=== PATIENT | female | born 1935 | race Caucasian/White ===

== ENCOUNTER → 2019-04-02 | Outpatient (REF) | payer MEDICARE ==
[2019-04-02 13:50] LABS: BASO % 0.6 % (0.0-1.0); EOS # 0.2 10^3/uL (0.0-0.5); EOS % 3.1 % (0.0-3.0); HEMATOCRIT 40.2 % (36.0-47.0); HEMOGLOBIN 13.3 g/dl (12.0-15.5); LYMPH # 2.2 10^3/uL (1.5-5.0); MEAN CORPUSCULAR HEMOGLOBIN 33.2 pg (27.0-33.0); MEAN CORPUSCULAR HGB CONC 33.1 g/dl (32.0-36.5); MEAN CORPUSCULAR VOLUME 100.2 fl (80.0-96.0); MONO # 0.6 10^3/uL (0.0-0.8); MONO % 8.3 % (0.0-5.0); NEUTROPHILS % 56.7 % (36.0-66.0); PLATELET COUNT, AUTOMATED 305 10^3/uL (150-450); RED BLOOD COUNT 4.01 10^6/uL (4.00-5.40)
[2019-04-02 14:04] LABS: ALBUMIN 3.9 GM/DL (3.2-5.2); ALT/SGPT 21 U/L (12-78); BILIRUBIN,TOTAL 0.3 MG/DL (0.2-1.0); BLOOD UREA NITROGEN 28 MG/DL (7-18); CALCIUM LEVEL 9.2 MG/DL (8.8-10.2); CARBON DIOXIDE LEVEL 25 MEQ/L (21-32); CHLORIDE LEVEL 109 MEQ/L (98-107); FOLATE > 24.0 NG/ML; GLOMERULAR FILTRATION RATE > 60.0 (>32); GLUCOSE, FASTING 96 MG/DL (70-100); POTASSIUM SERUM 4.3 MEQ/L (3.5-5.1); RHEUMATOID FACTOR QUANT < 10.0 IU/ML (<15.0); SODIUM LEVEL 143 MEQ/L (136-145); TOTAL PROTEIN 7.1 GM/DL (6.4-8.2); VITAMIN B12 LEVEL 479 PG/ML
[2019-04-02 14:11] LABS: HEMOGLOBIN A1c 5.4 %
[2019-04-02 14:29] LABS: ERYTHROCYTE SEDIMENTATION RATE 20 mm/hr (0-30)
[2019-04-08 11:01] LABS: DRVV SCREEN 40.2 SEC
[2019-04-09 00:06] LABS: ANTI DS-DNA AB <1:10 titer (.); ANTINUCLEAR ANTIBODIES DIRECT Negative (Negative); SJOGREN'S ANTI SS-A <0.2 AI (0.0-0.9); SJOGREN'S ANTI SS-B <0.2 AI (0.0-0.9); VITAMIN B1 LEVEL WHOLE BLOOD 153.8 nmol/L (66.5-200.0); VITAMIN B6,PYRIDOXAL PHOSPHATE 25.6 ug/L (2.0-32.8); VITAMIN E(ALPHA TOCOPHEROL) 19.5 mg/L (9.0-29.0); VITAMIN E(GAMMA TOCOPHEROL) 2.1 mg/L (0.5-4.9)
== END ==
LOC: M LABNEURO 09:48
PROVIDERS: ATTEND Psychiatry & Neurology Neurology
DX: R41.89 Other symptoms and signs involving cognitive functions and awareness (principal); E07.9 Disorder of thyroid, unspecified

== ENCOUNTER 2019-05-07 17:53 | Inpatient (IN) | payer MEDICARE ==
[~2019-05-07] VITALS: Ht 167.6 cm; Wt 64.8 kg
[2019-05-07] MEDS ORDERED: SERT-138 PO (18:15)
[2019-05-07] MEDS ORDERED: ATOR1TAB19 PO (18:15)
[2019-05-07] MEDS ORDERED: ASPI81CH44 PO (18:15)
[2019-05-07] MEDS ORDERED: DONE10TA90 PO (18:15)
[2019-05-07] MEDS ORDERED: MULTCAP PO (20:08)
[2019-05-07] MEDS ORDERED: METO1TAB7 PO (20:08)
[2019-05-07] MEDS ORDERED: GINK60TA2 PO (20:08)
--- NOTE | 2019-05-07 20:29 | REPVR ---
PROCEDURE INFORMATION: Exam: CT Head Without Contrast Exam date and time: 05/07/2019 7:40 PM Clinical history: 83 years old, female; Injury or trauma; Fall; Initial encounter; Blunt trauma (contusions or hematomas) TECHNIQUE: Imaging protocol: Computed tomography of the head without contrast. Radiation optimization: All CT scans at this facility use at least one of these dose optimization techniques: automated exposure control; mA and/or kV adjustment per patient size (includes targeted exams where dose is matched to clinical indication); or iterative reconstruction. COMPARISON: No relevant prior studies available. FINDINGS: Brain: Patchy areas of hypoattenuation in the periventricular and subcortical white matter, consistent with chronic small vessel ischemic disease. No CT evidence of acute intracranial hemorrhage or acute territorial infarction. No significant mass effect or midline shift. Basal cisterns patent. Ventricles: Prominence of the cortical sulci, cisterns and ventricular system, consistent with cerebral and cerebellar volume loss. Bones/joints: No acute osseous abnormality. Sinuses: Minimal ethmoid mucosal thickening. Mastoid air cells: Grossly unremarkable. Soft tissues: Grossly unremarkable. Vasculature: Calcific atherosclerotic disease in the cavernous internal carotid arteries. IMPRESSION: 1. No CT evidence of acute intracranial pathology. 2. Additional findings, as above. Electronically signed by: Lionel Mcnamara On 05/07/2019 20:29:02 PM
[2019-05-07] MEDS ORDERED: DONEPEZIL 5 MG TAB PO ONE (20:30)
[2019-05-07] MEDS ORDERED: SERTRALINE 100 MG TAB PO ONE (20:30)
[2019-05-07] MEDS ORDERED: METOPROLOL SUCC (TopROL XL) 50MG **XL** TAB PO ONE (20:30)
--- NOTE | 2019-05-07 20:33 | REPVR ---
PROCEDURE INFORMATION: Exam: CT Cervical Spine Without Contrast Exam date and time: 05/07/2019 7:40 PM Clinical history: 83 years old, female; Injury or trauma; Fall; Initial encounter; Blunt trauma TECHNIQUE: Imaging protocol: Computed tomography images of the cervical spine without contrast. Axial, coronal and sagittal reformatted images were created and reviewed. Radiation optimization: All CT scans at this facility use at least one of these dose optimization techniques: automated exposure control; mA and/or kV adjustment per patient size (includes targeted exams where dose is matched to clinical indication); or iterative reconstruction. COMPARISON: No relevant prior studies available. FINDINGS: Vertebrae: Osteopenia. Mild reversal of the normal cervical lordosis. Mild anterolisthesis of C3 on C4. Alignment otherwise anatomic. No CT evidence of acute fracture, dislocation or subluxation. Vertebral body heights maintained. Discs/Spinal canal/Neural foramina: Mild multilevel degenerative changes, characterized by disc space narrowing, osteophytosis and uncovertebral and facet joint hypertrophy. Mild multilevel spinal canal and neural foraminal narrowing. Soft tissues: Grossly unremarkable. Lungs: Subsegmental consolidation at the left apex, likely due to atelectasis and/or scarring. IMPRESSION: 1. No CT evidence of acute cervical spine traumatic injury. 2. Additional findings, as above. Electronically signed by: Lionel Mcnamara On 05/07/2019 20:31:22 PM
[2019-05-07 20:54] LABS: HEMATOCRIT 37.7 % (36.0-47.0); HEMOGLOBIN 12.5 g/dl (12.0-15.5); MEAN CORPUSCULAR VOLUME 95.7 fl (80.0-96.0); RED BLOOD COUNT 3.94 10^6/uL (4.00-5.40); WHITE BLOOD COUNT 8.7 10^3/uL (4.0-10.0)
[2019-05-07 20:55] LABS: BASO % 0.2 % (0.0-1.0); EOS # 0.1 10^3/uL (0.0-0.5); EOS % 0.9 % (0.0-3.0); LYMPH # 2.6 10^3/uL (1.5-5.0); LYMPH % 29.4 % (24.0-44.0); MEAN CORPUSCULAR HEMOGLOBIN 31.7 pg (27.0-33.0); MEAN CORPUSCULAR HGB CONC 33.2 g/dl (32.0-36.5); MONO # 0.8 10^3/uL (0.0-0.8); MONO % 9.5 % (0.0-5.0); NEUTROPHILS # 5.2 10^3/uL (1.5-8.5); NEUTROPHILS % 59.7 % (36.0-66.0); PLATELET COUNT, AUTOMATED 273 10^3/uL (150-450)
[2019-05-07 21:24] LABS: AMPHETAMINES LEVEL URINE NEGATIVE (NEGATIVE); BARBITURATES URINE NEGATIVE (NEGATIVE); BENZODIAZEPINES URINE NEGATIVE (NEGATIVE); CANNABINOIDS URINE NEGATIVE (NEGATIVE); COCAINE METABOLITE URINE NEGATIVE (NEGATIVE); METHADONE URINE NEGATIVE (NEGATIVE); OPIATES URINE NEGATIVE (NEGATIVE); PHENCYCLIDINE URINE NEGATIVE (NEGATIVE)
[2019-05-07 21:28] LABS: ALBUMIN 3.7 GM/DL (3.2-5.2); ALT/SGPT 20 U/L (12-78); BILIRUBIN,DIRECT 0.1 MG/DL (0.0-0.2); BILIRUBIN,TOTAL 0.5 MG/DL (0.2-1.0); BLOOD UREA NITROGEN 18 MG/DL (7-18); CARBON DIOXIDE LEVEL 26 MEQ/L (21-32); CHLORIDE LEVEL 108 MEQ/L (98-107); CK-MB VALUE MASS < 1.0 NG/ML (<3.6); CPK CREATINE PHOSPHOKINASE 195 U/L (26-192); CREATININE FOR GFR 0.72 MG/DL (0.55-1.30); ETHYL ALCOHOL (ETHANOL) < 0.003 % (0.000-0.010); GLOMERULAR FILTRATION RATE > 60.0 (>32); GLUCOSE, FASTING 93 MG/DL (70-100); MB/CK RELATIVE INDEX 0.51 (< OR =4); POTASSIUM SERUM 3.6 MEQ/L (3.5-5.1); SODIUM LEVEL 141 MEQ/L (136-145); TOTAL PROTEIN 6.8 GM/DL (6.4-8.2); TROPONIN I < 0.02 NG/ML (< 0.10)
[2019-05-07] MEDS ORDERED: MAALOX 30 ML SUSP *UDC PO PRN (21:45)
[2019-05-07] MEDS ORDERED: ATORVASTATIN 10 MG TAB PO ONE (21:45)
[2019-05-07] MEDS ORDERED: ATORVASTATIN 20 MG TAB PO ONE (21:45)
--- NOTE | 2019-05-07 22:12 | HPEPDOC ---
General Date of Admission May 07, 2019 at 17:54 Date of Service: May 07, 2019 Chief Complaint The patient is a 83-year-old female admitted with a reason for visit of Altered Mental Status, Fall. Source: Family, RN/MD Exam Limitations: Other (advanced dementia) Timing/Duration: Unsure Severity: Other (, not applicable) Associated Symptoms: Other History of Present Illness This is 83 years old white female with past medical history of dementia, hyperlipidemia, hypertension who lives alone and independent was transferred from [facility] for altered mental status.. Patient has advanced dementia, unable to obtained history from her history was obtained from her 2 sons at the bedside. According to both sons. She was walking towards bank and all the way. She fell on the sidewalk not sure how when the she had any LOC, etc.? She reached the [employer] and and somebody at the bank and recognize her and brought her back home. Patient does not remember anything. Cannot offer any history at the present time Home Medications Scheduled Aspirin (Aspirin) 81 Mg Tab.chew, 81 MG PO QPM, (Reported) Atorvastatin Calcium (Atorvastatin Calcium) 10 Mg Tablet, 10 MG PO QPM, (Reported) Donepezil HCl (Donepezil HCl) 10 Mg Tablet, 10 MG PO QPM, (Reported) Ginkgo Biloba [place] Extract (Ginkgo) 60 Mg Tablet, 60 MG PO QPM, (Reported) Metoprolol Succinate (Metoprolol Succinate) 50 Mg Tab.er.24h, 50 MG PO QPM, (Rep orted) Multivitamin (Multivitamins) 1 Each Capsule, 1 CAP PO QPM, (Reported) Sertraline HCl (Sertraline HCl) 100 Mg Tablet, 100 MG PO QPM, (Reported) Allergies Coded Allergies: No Known Allergies (Unverified , 05/07/19) Past Medical History Medical History Dementia, hyperlipidemia, possible depression and hypertension Surgical History None available Social History * Smoker: Denies Alcohol: Denies Drugs: denies A-FIB/CHADSVASC A-FIB History Current/History of A-Fib/PAF?: No Review of Systems Constitutional: Reports: Other (. Unable to obtained review of systems secondary to patient's mental status) Physical Examination General Exam: Positive: Alert, Other (oriented 0) Eye Exam: Positive: PERRLA, Conjunctiva & lids normal ENT Exam: Positive: Atraumatic, Mucous membr. moist/pink Neck Exam: Positive: Supple Chest Exam: Positive: Clear to auscultation, Normal air movement Heart Exam: Positive: Rate Normal, Normal S1 Abdomen Exam: Positive: Normal bowel sounds, Soft Extremity Exam: Positive: Normal pulses Skin Exam: Positive: Nl turgor and temperature Neuro Exam: Positive: Strength at 5/5 X4 ext, Sensation Intact, Cranial Nerves 3-12 NL Psych Exam: Positive: Other (, oriented 0) Vital Signs Vital Signs Date Time Temp Pulse Resp B/P (MAP) Pulse Ox O2 Delivery O2 Flow Rate FiO2 05/07/19 21:26 95 18 96 Room Air 05/07/19 20:45 164/84 (110) 05/07/19 18:06 99.0 Laboratory Data Labs 24H Laboratory Tests 2 05/07/19 19:30: Immature Granulocyte % (Auto) 0.3, Neutrophils (%) (Auto) 59.7, Lymphocytes (%) (Auto) 29.4, Monocytes (%) (Auto) 9.5H, Eosinophils (%) (Auto) 0.9, Basophils (%) (Auto) 0.2, Neutrophils # (Auto) 5.2, Lymphocytes # (Auto) 2.6, Monocytes # (Auto) 0.8, Eosinophils # (Auto) 0.1, Basophils # (Auto) 0.0, Nucleated Red Blood Cells % (auto) 0.0, Anion Gap 7L, Glomerular Filtration Rate > 60.0, Calcium Level 9.0, Total Bilirubin 0.5, Direct Bilirubin 0.1, Aspartate Amino Transf (AST/SGOT) 13, Alanine Aminotransferase (ALT/SGPT) 20, Alkaline Phosphatase 62, Ammonia 11, Total Creatine Kinase 195H, Creatine Kinase MB < 1.0, Creatine Kinase MB Relative Index 0.51, Troponin I < 0.02, Total Protein 6.8, Albumin 3.7, Albumin/Globulin Ratio 1.19, Thyroid Stimulating Hormone (TSH) 2.790, Ethyl Alcohol Level < 0.003 05/07/19 20:28: Urine Color YELLOW, Urine Appearance CLEAR, Urine pH 6.0, Urine Specific [place] 1.010, Urine Protein NEGATIVE, Urine Glucose (UA) NEGATIVE, Urine Ketones NEGATIVE, Urine Blood 1+H, Urine Nitrite NEGATIVE, Urine Bilirubin NEGATIVE, Urine Urobilinogen 0.2, Urine Leukocyte Esterase NEGATIVE, Urine WBC (Auto) 3, Urine RBC (Auto) 1, Urine Hyaline Casts (Auto) 0, Urine Bacteria (Auto) NEGATIVE, Urine Squamous Epithelial Cells 0, Urine Sperm (Auto) , Urine Opiates Screen NEGATIVE, Urine Methadone Screen NEGATIVE, Urine Barbiturates Screen NEGATIVE, Urine Phencyclidine Screen NEGATIVE, Urine Amphetamines Screen NEG ATIVE, Urine Benzodiazepines Screen NEGATIVE, Urine Cocaine Metabolite Screen NEGATIVE, Urine Cannabinoids Screen NEGATIVE CBC/BMP Laboratory Tests 05/07/19 19:30 Problems (1) Altered mental status Status: Acute Problem Text: 83 years old white female with advanced dementia, hypertension, hyperlipidemia, had a fall on away from her home to thank patient does not recall the events most likely was a mechanical fall, but cannot rule out any other etiology, especially neurological etiology. . She had a CT of the head done which is essentially negative. All the lab work is within normal limits Will order further neurological workup such as MRI of the brain, echocardiogram and carotid Dopplers Admit to PCU with telemetry monitoring to rule out any cause of her advanced causing her to fall MRI of the brain to rule out any ischemia or thrombosis Carotid Dopplers Echocardiogram Physical therapy evaluation in a.m. Out of bed with assistance fall precaution 2 g sodium diet Social work eval for possible placement (2) Advanced dementia Status: Chronic Problem Text: Continue home meds (3) HTN (hypertension) Status: Chronic Problem Text: Continue home meds (4) Hyperlipidemia Status: Chronic Problem Text: Continue home meds Plan / VTE VTE Prophylaxis Ordered?: Yes BONNIE EL MD May 07, 2019 22:12
[2019-05-07 23:30] VITALS: BP 160/71
--- NOTE | 2019-05-07 23:58 | REP ---
Clinical: Trauma. Technique: AP, lateral, bilateral oblique views of the left knee. Findings: No acute fracture or dislocation. No obvious effusion. Mild arthritic changes include subtle cortical irregularity and very early spurring along the medial tibiofemoral compartment as well as small amounts of chondrocalcinosis. Lateral view demonstrates anterior swelling. Impression: Mild arthritic degenerative changes. No obvious acute fracture or dislocation. Electronically Signed by Lenard Le MD 05/07/2019 11:48 P
--- NOTE | 2019-05-08 00:02 | REP ---
Clinical: Trauma. Technique: AP, lateral, bilateral oblique views of the right wrist. Findings: Age-related osteopenia and diffuse arthritic degenerative changes are appreciated primarily involving the lateral aspect of the wrist. Findings include cortical irregularity, subtle spurring, subchondral sclerosis/heterogeneity, and small amounts of chondrocalcinosis as well as minimal joint space narrowing. A subtle nondisplaced fracture of the scaphoid bone cannot be excluded. Impression: 1. Osteopenia and moderate arthritic degenerative changes. 2. Subtle nondisplaced fracture of the scaphoid bone cannot be excluded. Electronically Signed by Lenard Le MD 05/07/2019 11:53 P
--- NOTE | 2019-05-08 00:03 | REP ---
Clinical: Trauma. Technique: AP, lateral, bilateral oblique views of the left hand. Findings: Osteopenia and moderate arthritic degenerative changes are appreciated which limit evaluation for subtle injury involving the wrist. No definite acute fracture or dislocation identified. Impression: Osteopenia and arthritic degenerative changes limit evaluation for subtle injury. If the patient remains symptomatic consider reevaluation in 3-5 days. Electronically Signed by Lenard Le MD 05/07/2019 11:55 P
--- NOTE | 2019-05-08 00:05 | REP ---
Clinical: Altered mental status . Comparison: None . Technique: PA and lateral. Findings: The mediastinum and cardiac silhouette are normal. The lung robin demonstrate diffuse chronic interstitial changes without acute consolidation, effusion, or pneumothorax. The skeletal structures are intact and normal. Impression: 1. No acute cardiopulmonary process. Electronically Signed by Lenard Le MD 05/07/2019 11:57 P
[2019-05-08] MEDS ORDERED: SLF 3 ML SYR IV PRN (01:00)
[2019-05-08 04:00] VITALS: BP 136/72
[2019-05-08] MEDS: SLF 3 ML SYR IV SCH ×3 (05:08→21:26)
[2019-05-08] MEDS: ACETAMINOPHEN TAB 650MG DOSE (2X325MG) PO PRN ×3 (05:08→21:26)
[2019-05-08 05:59] LABS: HEMATOCRIT 37.5 % (36.0-47.0); HEMOGLOBIN 12.6 g/dl (12.0-15.5); MEAN CORPUSCULAR HEMOGLOBIN 32.6 pg (27.0-33.0); MEAN CORPUSCULAR HGB CONC 33.6 g/dl (32.0-36.5); MEAN CORPUSCULAR VOLUME 96.9 fl (80.0-96.0); PLATELET COUNT, AUTOMATED 251 10^3/uL (150-450); RED BLOOD COUNT 3.87 10^6/uL (4.00-5.40); WHITE BLOOD COUNT 9.7 10^3/uL (4.0-10.0)
[2019-05-08 06:34] LABS: ALBUMIN 3.4 GM/DL (3.2-5.2); ALT/SGPT 20 U/L (12-78); BILIRUBIN,TOTAL 0.4 MG/DL (0.2-1.0); BLOOD UREA NITROGEN 18 MG/DL (7-18); CARBON DIOXIDE LEVEL 27 MEQ/L (21-32); CHLORIDE LEVEL 110 MEQ/L (98-107); CREATININE FOR GFR 0.74 MG/DL (0.55-1.30); GLOMERULAR FILTRATION RATE > 60.0 (>32); GLUCOSE, FASTING 97 MG/DL (70-100); POTASSIUM SERUM 3.5 MEQ/L (3.5-5.1); SODIUM LEVEL 143 MEQ/L (136-145)
[2019-05-08 08:00] VITALS: BP 122/58
[2019-05-08] MEDS: DOCUSATE SODIUM 100 MG CAP PO SCH ×2 (09:00→21:25)
[2019-05-08] MEDS: ENOXAPARIN 30 MG/0.3 ML SYR (J1650) SC SCH (10:52)
[2019-05-08 12:00] VITALS: BP 124/62
--- NOTE | 2019-05-08 15:31 | ECGEPIP ---
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
[2019-05-08 17:23] VITALS: BP 119/78
--- NOTE | 2019-05-08 18:51 | REPVR ---
PROCEDURE INFORMATION: Exam: CT Right Upper Extremity Without Contrast, Wrist Exam date and time: 05/08/2019 6:17 PM Clinical history: 83 years old, female; Injury or trauma; Fall; Initial encounter; Blunt trauma (contusions or hematomas; Wrist; Right; Additional info: Right wrist ? scaphoid fracture S/P fall TECHNIQUE: Imaging protocol: CT of the Right upper extremity without contrast was performed. Exam focused on the wrist. Radiation optimization: All CT scans at this facility use at least one of these dose optimization techniques: automated exposure control; mA and/or kV adjustment per patient size (includes targeted exams where dose is matched to clinical indication); or iterative reconstruction. COMPARISON: CR Wrist, complete RIGHT 05/07/2019 7:54 PM FINDINGS: Bones/joints: Chondrocalcinosis of the distal radioulnar, radiocarpal, midcarpal and triscaphe joints, as well as triangular fibrocartilage and lunotriquetral ligament. Cystlike lucencies within multiple carpal bones. Degenerative arthrosis of the radiocarpal, triscaphe and basal joints. No fracture. Soft tissues: Mild swelling of the wrist soft tissues. IMPRESSION: 1. No fracture. 2. 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 Electronically signed by: Jose Leonard On 05/08/2019 18:51:24 PM
[2019-05-08] MEDS ORDERED: NS 1,000 ML IV SCH (19:30)
--- NOTE | 2019-05-08 19:33 | IPN ---
DATE: 05/08/2019 The patient is not cooperative this morning, would not answer any questions. Per nursing, she was able to squeeze her hand earlier this morning, able to state that she has three sons. However, at the bedside, she keeps her eyes closed, opens them occasionally, does not answer any questions, goes back to sleep. She has been afebrile overnight. Per nursing, she has had altered mental status throughout the evening, sometimes cooperative and other times not. MRI of the brain was done at [facility], I do not have the results of that at this time. CT of the head here at [facility] from 05/07/2019 was negative. Unable to complete further review of systems. PHYSICAL EXAMINATION: VITAL SIGNS: Temperature 99.2, pulse 75, respiratory rate 16, blood pressure 119/70, 93% on room air. GENERAL: The patient is demented. She does not answer. She is not cooperative with the examination. Per nursing, the patient does not have any conversational dyspnea and speaks to them in full sentences. For me however she only says yes to her name, does not state her full name, date of , where she is or what the date is. She continues to sleep, but is arousable. Does not appear to be lethargic but just uncooperative. No jugular venous distention (JVD). No thyromegaly.chapped lips. Poor dentition and halitosis. LUNGS: Diminished but clear to auscultation. No wheezing, rales or rhonchi. HEART: S1, S2. Sinus rhythm. ABDOMEN: Soft, nontender, nondistended. Positive bowel sounds. EXTREMITIES: No cyanosis, clubbing, or pitting edema. NEUROLOGIC: Examination could not be completed as the patient is demented and not cooperative at this time. LABORATORY DATA: Complete blood count (CBC) and metabolic panel have been reviewed. IMAGING STUDIES: CT of the right wrist shows CPPD arthropathy with degenerative arthrosis with chondrocalcinosis with no acute fracture seen. ASSESSMENT AND PLAN: This is an 83-year-old female who has chronic dementia, lives alone, dyslipidemia, hypertension, who was transferred from [facility] due to worsening confusion. The patient was walking towards the bank on the sidewalk, unsure that she had loss of consciousness, and does not remember anything beyond that. CURRENT ISSUES: Acute encephalopathy s/p fall with gait imbalance and possible LOC. unwitness fall outside. MRI of the brain is unavailable at this time, done at [facility]. Telemetry was unremarkable. Remains in sinus rhythm. Carotid Dopplers were not ordered. no infectious etiology. ua unremarkable, ct chest negative. no fever or meningeal signs to necessitate lumbar puncture. Chronic dementia on donepezil. TELE negative. pt's son, Donald will be moving in with her, but he still works, and she will not have 24/7 supervision. Fall with questionable loss of consciousness. We will obtain an echocardiogram to rule out valvular disease and EEG to rule out possible seizures. Electrocardiogram (EKG) on admission showed sinus rhythm, ventricular rate of 68, moderate T wave abnormality and left axis deviation. Hypertension. Continue on home dose of metoprolol. Depression. Continue on Zoloft. Dyslipidemia. On atorvastatin. Right Wrist Swelling s/p fall possible fracture on Xray. Obtain CT right wrist. Ortho consulted for activity Disposition: son wants to take care of the patient. PT/OT/ARU consulted. PFS consulted. GA
--- NOTE | 2019-05-08 20:48 | REPVR ---
PROCEDURE INFORMATION: Exam: US Duplex Bilateral Extracranial Arteries Exam date and time: 05/08/2019 8:33 PM Clinical history: 83 years old, female; Walking, difficulty; Additional info: Fall TECHNIQUE: Imaging protocol: Real-time Duplex ultrasound scan of the bilateral carotid and vertebral arteries combining abdul scale, color Doppler and spectral waveform analysis. Bilateral exam. COMPARISON: CT Head without contrast 05/07/2019 7:34 PM FINDINGS: Right common carotid artery: Right CCA peak systolic velocity 71.3 cm/s. Right internal carotid artery: Right ICA peak systolic velocity 51.6 cm/s. Minimal plaque within the right carotid bulb and proximal right ICA. Right ICA/CCA ratio: Right ICA/CCA ratio of 0.72. Right external carotid artery: Right ECA peak systolic velocity 69.8 cm/s. Right vertebral artery: Unremarkable. Antegrade flow Left common carotid artery: Left CCA peak systolic velocity 65.9 cm/s. Left internal carotid artery: Left ICA peak systolic velocity 72.9 cm/s. Minimal plaque within the left carotid bulb and proximal left ICA. Left ICA/CCA ratio: Left ICA/CCA ratio 1.11. Left external carotid artery: Left ECA peak systolic velocity 61.1 cm/s. Left vertebral artery: Nonvisualization of the left vertebral artery. IMPRESSION: 1. Right ICA stenosis: Mild: less than 50% stenosis. 2. Left ICA stenosis: Mild: less than 50% stenosis. COMMENT: Carotid Stenosis Reference using SRU criteria: Mild: less than 50% stenosis. ICA PSV is less than 125 cm/second and plaque or intimal thickening is visible. Moderate: 50-69% stenosis. ICA PSV is 125 to 230 cm/second and plaque is visible. Severe: 70-94% stenosis. ICA PSV is more than 230 cm/second and visible plaque and lumen narrowing are seen. Near occlusion: 95-99% stenosis. ICA PSV is variable and significant plaque and luminal narrowing are seen. Occluded: 100% stenosis. No flow identified. Electronically signed by: Jose Leonard On 05/08/2019 20:48:21 PM
--- NOTE | 2019-05-08 21:05 | ECHO ---
DATE OF PROCEDURE: 05/08/2019 REFERRING PHYSICIAN: Dr. Rose INDICATION: Syncope. HEIGHT: 168 cm WEIGHT: 65 kg 2D MEASUREMENTS: Left atrium: 3.3 cm Ventricular septum: 0.96 cm Posterior wall: 0.97 cm Left ventricle diastole: 4.0 cm Aortic root: 2.9 cm Inferior vena cava: 1.7 cm DOPPLER MEASUREMENTS: Aortic valve velocity: 149 cm/s LVOT velocity: 93.2 cm/s No aortic regurgitation. Very mild mitral regurgitation. Mitral E velocity: 68.6 cm/s Mitral A velocity: 104 cm/s Mitral deceleration time: 313 ms Very mild tricuspid regurgitation. Estimated right ventricle systolic pressure 32-37 mmHg assuming a right atrial pressure of 5-10 mmHg. Pulmonary artery systolic pressure 33 mmHg. MITRAL ANNULAR TISSUE DOPPLER: E prime septal: 3.7 cm/s E prime lateral: 4.8 cm/s DESCRIPTION: Rhythm was sinus. Image quality was fair. This was a 2D, M-mode, color flow Doppler and pulse wave Doppler examination that included mitral annular tissue Doppler. CONCLUSIONS: 1. Normal left ventricle internal dimensions and wall thickness. Normal regional wall motion and wall thickening. Left ventricular ejection fraction (LVEF) of 70% by visual estimate. Grade 1 left ventricle (LV) diastolic dysfunction (impaired relaxation filling pattern). 2. Very small pericardial effusion measuring 0.7 cm of the posterior wall of left ventricle. 3. Mild mitral annular calcification. Very mild mitral regurgitation. 4. Mild aortic valve sclerosis. No aortic valve regurgitation. Aortic valve was three-cuspid. 5. Suggestive of mild elevation of pulmonary artery systolic pressure and estimated right ventricle systolic pressure. 6. 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
[2019-05-08] MEDS: ASPIRIN 81 MG CHEW TABLET PO SCH (21:25)
[2019-05-08] MEDS: ATORVASTATIN 10 MG TAB PO SCH (21:26)
[2019-05-08] MEDS: METOPROLOL SUCC (TopROL XL) 50MG **XL** TAB PO SCH (21:26)
[2019-05-08] MEDS: SERTRALINE 100 MG TAB PO SCH (21:26)
[2019-05-08 22:00] VITALS: BP 122/58
[2019-05-09] MEDS: SLF 3 ML SYR IV SCH ×3 (05:39→21:54)
[2019-05-09 06:48] VITALS: BP 122/56
[2019-05-09] MEDS: ENOXAPARIN 30 MG/0.3 ML SYR (J1650) SC SCH (09:00)
[2019-05-09] MEDS: DOCUSATE SODIUM 100 MG CAP PO SCH ×2 (09:00→20:52)
[2019-05-09] MEDS: MULTIVITAMINS/MINERALS THERAP 1 TAB PO SCH (10:58)
--- NOTE | 2019-05-09 11:40 | IPN ---
DATE: 05/09/2019 Yesterday patient had a right wrist swelling and pain. CT shows no fracture. Calcium pyrophosphate dihydrate (CPPD) most likely. Overnight, patient's two sons visited. Her mentation improved slightly but still not back to baseline. According to the son, the patient walked over to the bank, had fallen and then told the new accounts banking representative that she had fallen. Donald will be moving in with her but he still works and she will not have any supervision during the day. Patient is still able to do her activities of daily living (ADLs), shower, clean herself and able to fulfill her toiletry needs, according to the son. He and his brother do not want the mother to be placed in a skilled nursing. They would like to keep her home as much as possible. According to the son, patient has been increasingly forgetful. Balance has been issue with fall now sustaining an injury. CT of the head was unremarkable. CT of the wrist, no fracture, orthopedics to see her today and decide on how to stabilize. As needed Tylenol for pain for now. Vitals: Temperature 99.4, pulse 69, respiratory rate 17, blood pressure 122/56, 94% on room air. Patient is much more alert this morning, able to answer questions appropriately. She says she can still live alone but is open to having Donald move in with her. Complains of pain 5/10 pain of the wrist, even without activity. She is awake, alert, oriented to herself only. Does not know the name of the hospital or the date. Pupils are reactive. Unable to assess for extraocular muscles as the patient has refused. Dry mucous membranes. No cervical lymphadenopathy or thyromegaly. Lungs are clear to auscultation. No wheezing or rales. Heart: S1, S2 sinus rhythm. Abdomen is soft, nontender. Nondistended. Positive bowel sounds. Extremities: Lower extremities have no pitting edema or cyanosis. Right wrist is slightly swollen. Difficulty with flexing and extending due to pain. Radial and ulnar pulses are noted. Skin warm, dry, well perfused. [place] on color. LABORATORY DATA: CBC, metabolic panel on 05/08/2019 have been reviewed. Urine 05/07/2019 was negative. All imaging studies have been reviewed. ASSESSMENT/PLAN: This is an 83-year-old female who lives alone with chronic [facility], dyslipidemia, hypertension. Was transferred from [place] due to altered mental status. MRI of the brain at [place] was negative. Acute Issues: 1. Acute encephalopathy most likely due to progressive dementia. No infectious etiology has been found. [facility], and [facility] read of the MRI brain disk is still pending. Patient's family wants to keep her at home as much as possible. 2. Fall: EKG with sinus rhythm. No arrhythmias noted on telemetry. Echocardiogram shows grade 1 diastolic dysfunction and mild mitral regurgitation (MR). Atheroma in upper portion of the abdominal aorta, ejection fraction (EF) of 70%. 3. Dimension on chronic Aricept, which we will resume. Physical therapy (PT) and occupational therapy (OT). No placement per family. MTDD
--- NOTE | 2019-05-09 12:17 | IPNPDOC ---
Date Seen The patient was seen on 05/09/19. Progress Note EMERGENCY CONTACT INFORMATION: PT'S SON, MITCH, (PREFERRED 1ST CONTACT) SISTER, HORACE BURNETT, (DOES NOT LIVE IN THE AREA) VS, I&O, 24H, Fishbone Vital Signs/I&O Vital Signs Date Time Temp Pulse Resp B/P (MAP) Pulse Ox O2 Delivery O2 Flow Rate FiO2 05/09/19 06:48 99.4 69 17 122/56 (78) 94 Room Air I&O- Last 24 Hours up to 6 AM 05/09/19 06:00 Intake Total 1200 ml Output Total 250 ml Balance 950 ml JED BEAVERS MD May 09, 2019 12:17
[2019-05-09 12:57] LABS: VITAMIN B12 LEVEL 392 PG/ML (247-911)
--- NOTE | 2019-05-09 17:18 | CR ---
DATE OF CONSULTATION: 05/08/2019 CHIEF COMPLAINT: Right wrist pain. The patient states that she was at home when she had a fall and since that time she has had right wrist pain. The patient has a complicated past medical history with dementia, hyperlipidemia, hypertension, who lives at home independent. The patient states the pain is made worse with range of motion and it is tender right at the radial carpal joint both the volar and dorsal aspects. This is alleviated with the brace that she is no wearing. She has no numbness, tingling, fevers, chills, nausea or vomiting. 10 system review was conducted. Pertinent, positive, and negative are in the history of present illness. All other systems are negative. ALLERGIES: No known drug allergies. MEDICATIONS: She is on aspirin, atorvastatin, donepezil, ginkgo biloba, metoprolol, and sertraline. PAST MEDICAL HISTORY: Dementia, hyperlipidemia, possible depression, hypertension. PAST SURGICAL HISTORY: No surgical history known. SOCIAL HISTORY: Denies alcohol, drugs, and smoking. PHYSICAL EXAMINATION: The patient is awake, alert and oriented at the moment, well dressed, appropriate affect. Breathing labored on room air. Full and active range of motion of the fingers, wrist, elbow, and shoulder without pain and discomfort. Skin is intact. Radial pulse 2+ regular rate. Sensation intact to light touch. Bilateral lower extremities have no tenderness to palpation. Full and active range of motion of the hips, knees, and feet without any pain or discomfort. Skin is intact. Posterior tibial pulses 2+ regular rate. Patella, tibia and gastroc motor function positive sensation intact to light touch in superficial peroneal, deep peroneal. Right upper extremity is tender to palpation at the radiocarpal joint. Pain with wrist range of motion and no tenderness to palpation elsewhere or pain with finger motion, elbow or shoulder. Skin is intact. Radial pulse is 2+ regular rate. Positive AIN, PIN. IMAGING: Hand x-ray was reviewed, left no acute fracture or dislocation. Right wrist, appears to be a stage 2/3 slack wrist with severe basal joint arthritis. There was concern for scaphoid fracture. 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 DIAGNOSIS: Right waist scaphoid fracture. At this point given the overall degeneration of the wrist immobilizaton is all she needs. She should get a thumb spica splint. She is currently in a wrist immobilizer. We will remedy this. When we see her in the office we can discuss placement of thumb spica cast however at this moment I do no think that it is mandatory especially given the severe mild degeneration within the wrist. If she continues to have problems down the line then we can talk about what procedures are available to her, however I think this is unlikely. She will consult in my office 2 weeks from discharge if she still has concerns.
[2019-05-09] MEDS: DONEPEZIL 5 MG TAB PO SCH (20:51)
[2019-05-09] MEDS: ASPIRIN 81 MG CHEW TABLET PO SCH (20:51)
[2019-05-09] MEDS: ATORVASTATIN 10 MG TAB PO SCH (20:52)
[2019-05-09] MEDS: SERTRALINE 100 MG TAB PO SCH (20:52)
[2019-05-09] MEDS: ACETAMINOPHEN TAB 650MG DOSE (2X325MG) PO PRN (20:52)
[2019-05-09] MEDS: METOPROLOL SUCC (TopROL XL) 50MG **XL** TAB PO SCH (20:54)
[2019-05-09 21:39] VITALS: BP 113/65
[2019-05-10] MEDS: SLF 3 ML SYR IV SCH ×3 (06:21→21:13)
[2019-05-10] MEDS: MULTIVITAMINS/MINERALS THERAP 1 TAB PO SCH (08:41)
[2019-05-10] MEDS: ENOXAPARIN 30 MG/0.3 ML SYR (J1650) SC SCH (08:41)
[2019-05-10] MEDS: DOCUSATE SODIUM 100 MG CAP PO SCH ×2 (08:41→21:12)
--- NOTE | 2019-05-10 10:30 | EEG ---
DATE OF STUDY: 05/09/2019 REFERRING PHYSICIAN: Dr. Gaudencio Rose DIAGNOSIS: Altered mental status. EEG #: [id number] HISTORY: The patient is an 83-year-old woman with history of advanced dementia who was brought to [facility] due to altered mental status and speech. This EEG was done to rule out epileptic potential. She is currently taking aspirin, Lipitor, metoprolol, Zoloft, etc. TECHNICAL DESCRIPTION: This digital EEG was recorded by 21 scalp, ear and two EKG electrodes and was reviewed in bipolar and referential montages following reformatting 10-20 international electrode placement system. INTERPRETATION: The patient was noted to be in awake and drowsy states during this EEG. Resting awake background consisted of 6 Hz theta activity measuring 15-40 microvolts in amplitude which was symmetric and reactive to eye opening. No sleep was achieved. Hyperventilation could not be performed. Photic stimulation remained unremarkable. EKG revealed normal sinus rhythm. No focal, lateralizing or epileptiform abnormalities were seen. Excessive motion and muscle artifact was noted in bilateral frontal head region. No relevant clinical activity was noted. CONCLUSION: This EEG in awake and drowsy states is abnormal due to presence of generalized slowing and disorganization of background consistent with nonspecific diffuse cerebral dysfunction such as seen in dementia and encephalopathy due to multiple potential causes. No epileptiform abnormalities were seen. Clinical correlation is recommended.
[2019-05-10 14:00] VITALS: BP 123/66
--- NOTE | 2019-05-10 17:10 | IPN ---
DATE: 05/10/2019 The patient's son Stephen is at the bedside. He states that the patient occasionally has word salad at home, but has been increasingly forgetful and thinks that it is her birthday soon, which is in [birth year]. The patient will have the same conversation over again without realizing that she has had asked the same question. The patient is wondering when she can go home, as she has a small dog at home that her son Donald has been taking care of . She otherwise denies any fever, chills, shortness of breath, chest pain, pressure, tightness, nausea, vomiting, diarrhea, abdominal pain. Denies dysuria, urgency or frequency. Her right hand is feeling much better. Orthopedic surgery has seen her and have recommended a splint. She is able to eat without any difficulty and is right handed at baseline. The patient remains disoriented, only knows her name. She knows that she is in a hospital, able to provide some history, but often times has tangential conversations and repeats herself. During this interview today, the patient could not say the word railing, referring to the banisters going into the kitchen from her family room. Per the son, there are three steps into the home, but everything is mostly on the first floor. He is unable to help as he [place], but Donald will be moving in with her at some point, meeting will be set with social work on Sunday. PHYSICAL EXAMINATION: VITAL SIGNS: Temperature 98.8, pulse 69, respiratory rate 18, blood pressure 113/65, 96% on room air. GENERAL: The patient is pleasant, still confused and disoriented. Able to state her name. Does not know where she is and does not know the date. Unable to provide the year. No scleral icterus. No jaundice. No jugular venous distention (JVD). No use of respiratory accessory muscles. Face is symmetric. She does have some word finding difficulties, but speech is fluent. NECK: Supple. Full range of motion. No pronator drift. LUNGS: Clear to auscultation. No wheezing, rales or rhonchi. HEART: S1, S2. Sinus. ABDOMEN: Soft, nontender, nondistended. EXTREMITIES: No edema. LABORATORY DATA: 05/08/2019 complete blood count (CBC) and metabolic panel have been reviewed, all of which are normal. MRI of the brain still awaiting reading from [facility]. IMAGING STUDIES: Reviewed. ASSESSMENT AND PLAN: This is an 83-year-old female who lives alone and sustained a fall. CURRENT ISSUES: 1. Acute on chronic dementia. Electroencephalogram (EEG) is abnormal in keeping with dementia. MRI of the brain disc was to be read by [facility] radiologist, awaiting the report. 2. Chronic advanced dementia, currently on Aricept. Outpatient neurology followup for progressive cognitive impairment. 3. Grade 1 left ventricular diastolic dysfunction. No signs of fluid overload. 4. Very small pericardial effusion of no clinical significance at this time. Continue to monitor for symptoms. 5. Depression. On Zolofrt. 6. Hypertension. On home dose of metoprolol. Appears to be stable. 7. Right wrist swelling. CT of the hand is negative for fracture. 8. Dyslipidemia. On atorvastatin. DISPOSITION: The patient has three steps to get into the home. Awaiting improvement. From physical therapy (PT) standpoint, may need rehabilitation.
[2019-05-10 18:00] VITALS: BP 121/64
[2019-05-10] MEDS: SERTRALINE 100 MG TAB PO SCH (21:12)
[2019-05-10] MEDS: ASPIRIN 81 MG CHEW TABLET PO SCH (21:12)
[2019-05-10] MEDS: MOM 30ML SUSPENSION UDC PO PRN (21:12)
[2019-05-10] MEDS: ATORVASTATIN 10 MG TAB PO SCH (21:12)
[2019-05-10] MEDS: DONEPEZIL 5 MG TAB PO SCH (21:12)
[2019-05-10] MEDS: METOPROLOL SUCC (TopROL XL) 50MG **XL** TAB PO SCH (21:12)
[2019-05-10] MEDS: ACETAMINOPHEN TAB 650MG DOSE (2X325MG) PO PRN (21:13)
[2019-05-10 22:00] VITALS: BP 119/62
[2019-05-11 05:50] VITALS: BP 152/75
[2019-05-11] MEDS: DOCUSATE SODIUM 100 MG CAP PO SCH ×2 (08:45→21:23)
[2019-05-11] MEDS: ENOXAPARIN 30 MG/0.3 ML SYR (J1650) SC SCH (09:03)
[2019-05-11] MEDS: MULTIVITAMINS/MINERALS THERAP 1 TAB PO SCH (09:03)
[2019-05-11 14:00] VITALS: BP 96/60
--- NOTE | 2019-05-11 18:32 | IPN ---
DATE: 05/11/2019 The patient continues to be disoriented, unable to say the name of the hospital. She is cooperative and appropriate. Is able to state her name. Confused about the date. She wants to go home, but she is not safe for discharge, per physical therapy. Awaiting meeting with social media specialist and the patient's son regarding Medicaid application and disposition for home. She is currently medically stable. Workup has been all reviewed. No new changes in medications. PHYSICAL EXAMINATION: VITAL SIGNS: Temperature 98, pulse 72, respiratory rate 16, blood pressure 152/75, 95% on room air. GENERAL: The patient is awake, alert, oriented to herself. No facial asymmetry. No use of respiratory accessory muscles. HEENT: Nonicteric. No jaundice. No jugular venous distention (JVD), thyromegaly or cervical lymphadenopathy. LUNGS: Clear to auscultation. No wheezing, rales or rhonchi. HEART: S1, S2. Sinus rhythm. ABDOMEN: Soft, nontender, nondistended. Positive bowel sounds. EXTREMITIES: No cyanosis, clubbing or pitting edema. Right wrist appears with decreased swelling and improved range of motion. Able to flex and extend without difficulty. LABORATORY DATA: 05/08/2019 complete blood count (CBC) and metabolic panel have been reviewed. ASSESSMENT AND PLAN: This is an 83-year-old female who lives alone and had a fall while she was going to the bank and was brought into the hospital confused. CURRENT ISSUES: 1. Acute on chronic dementia. MRI has no acute abnormality. This is a chronically demented patient who lives alone and needs 24/7 care at home. Infectious workup was negative. The patient is awaiting family meeting with Donald, her son, to arrange for help.
[2019-05-11] MEDS: ASPIRIN 81 MG CHEW TABLET PO SCH (21:22)
[2019-05-11] MEDS: ACETAMINOPHEN TAB 650MG DOSE (2X325MG) PO PRN (21:22)
[2019-05-11] MEDS: DONEPEZIL 5 MG TAB PO SCH (21:22)
[2019-05-11] MEDS: SERTRALINE 100 MG TAB PO SCH (21:23)
[2019-05-11] MEDS: ATORVASTATIN 10 MG TAB PO SCH (21:23)
[2019-05-11] MEDS: METOPROLOL SUCC (TopROL XL) 50MG **XL** TAB PO SCH (21:24)
[2019-05-11 22:00] VITALS: BP 102/57
[2019-05-12 05:58] LABS: BASO % 0.5 % (0.0-1.0); EOS # 0.2 10^3/uL (0.0-0.5); EOS % 2.6 % (0.0-3.0); HEMOGLOBIN 11.4 g/dl (12.0-15.5); LYMPH # 2.1 10^3/uL (1.5-5.0); LYMPH % 36.5 % (24.0-44.0); MEAN CORPUSCULAR HEMOGLOBIN 32.7 pg (27.0-33.0); MEAN CORPUSCULAR HGB CONC 33.5 g/dl (32.0-36.5); MEAN CORPUSCULAR VOLUME 97.4 fl (80.0-96.0); MONO # 0.5 10^3/uL (0.0-0.8); MONO % 8.3 % (0.0-5.0); NEUTROPHILS % 51.9 % (36.0-66.0); PLATELET COUNT, AUTOMATED 250 10^3/uL (150-450); RED BLOOD COUNT 3.49 10^6/uL (4.00-5.40); WHITE BLOOD COUNT 5.8 10^3/uL (4.0-10.0)
[2019-05-12 06:00] VITALS: BP 138/71
[2019-05-12 06:26] LABS: ALBUMIN 2.8 GM/DL (3.2-5.2); ALT/SGPT 13 U/L (12-78); BILIRUBIN,DIRECT < 0.1 MG/DL (0.0-0.2); BILIRUBIN,TOTAL 0.1 MG/DL (0.2-1.0); BLOOD UREA NITROGEN 18 MG/DL (7-18); CALCIUM LEVEL 8.7 MG/DL (8.8-10.2); CARBON DIOXIDE LEVEL 29 MEQ/L (21-32); CHLORIDE LEVEL 112 MEQ/L (98-107); CREATININE FOR GFR 0.69 MG/DL (0.55-1.30); GLOMERULAR FILTRATION RATE > 60.0 (>32); GLUCOSE, FASTING 92 MG/DL (70-100); POTASSIUM SERUM 3.7 MEQ/L (3.5-5.1); SODIUM LEVEL 145 MEQ/L (136-145); TOTAL PROTEIN 6.5 GM/DL (6.4-8.2)
[2019-05-12] MEDS: MULTIVITAMINS/MINERALS THERAP 1 TAB PO SCH (09:10)
[2019-05-12] MEDS: ENOXAPARIN 30 MG/0.3 ML SYR (J1650) SC SCH (09:10)
[2019-05-12] MEDS: DOCUSATE SODIUM 100 MG CAP PO SCH ×2 (09:10→20:40)
--- NOTE | 2019-05-12 11:08 | IPNPDOC ---
Text Note Date of Service The patient was seen on 05/12/19. NOTE Patient was seen and examined with the son in the room. No overnight events PHYSICAL EXAMINATION: GENERAL: The patient is pleasant, still confused and disoriented. Able to s fuentes her name. Does not know where she is and does not know the date. Unable to provide the year. No scleral icterus. No jaundice. No jugular venous distention (JVD). No use of respiratory accessory muscles. Face is symmetric. She does have some word finding difficulties, but speech is fluent. NECK: Supple. Full range of motion. No pronator drift. LUNGS: Clear to auscultation. No wheezing, rales or rhonchi. HEART: S1, S2. Sinus. ABDOMEN: Soft, nontender, nondistended. EXTREMITIES: No edema. MRI of the brain still awaiting reading from [facility]. . ASSESSMENT AND PLAN: This is an 83-year-old female who lives alone and sustained a fall. CURRENT ISSUES: 1. Acute on chronic dementia. Electroencephalogram (EEG) is abnormal in keeping with dementia. MRI of the brain disc was to be read by [facility] radiologist, awaiting the official report. 2. Chronic advanced dementia, currently on Aricept. Outpatient neurology followup for progressive cognitive impairment. 3. Grade 1 left ventricular diastolic dysfunction. No signs of fluid overload. 4. Very small pericardial effusion of no clinical significance at this time. Continue to monitor for symptoms. 5. Depression. On Zolofrt. 6. Hypertension. On home dose of metoprolol. Appears to be stable. 7. Right wrist swelling. CT of the hand is negative for fracture. 8. Dyslipidemia. On atorvastatin. DISPOSITION: Per the son, there are three steps into the home, but everything is mostly on the first floor. He is unable to help as he is planning to move out west, but Donald will be moving in with her at some point, meeting will be set with social work today to determine mind if she would require any placement or rehabilitation VSRyan, I+O VSRyan, I+O Laboratory Tests 05/12/19 05:18 Vital Signs Date Time Temp Pulse Resp B/P (MAP) Pulse Ox O2 Delivery O2 Flow Rate FiO2 05/12/19 06:00 97.8 63 18 138/71 (93) 95 Room Air I&O- Last 24 Hours up to 6 AM 05/12/19 06:00 Intake Total 800 ml Output Total 0 ml Balance 800 ml CHRISTINA RODRIGUEZ MD May 12, 2019 11:07
--- NOTE | 2019-05-12 11:26 | REP ---
MRI brain: 05/07/2019. Indication: Ataxia. Overread requested. Comparison: None. Technique: Multiplanar short and long TR sequences of the brain were obtained without IV IV contrast at [facility]. 266 images are available for interpretation. Findings: There are no areas of restricted diffusion to suggest an acute infarction. There is no intracranial mass effect or hydrocephalous. Diffuse age-related volume loss is present. There are a few small foci of elevated T2 signal scattered throughout the cerebral hemisphere white matter bilaterally. The large intracranial flow voids are present and unremarkable. No significant fluid is present within the paranasal sinuses or mastoid air cells. Bilateral ocular lens replacements are noted. Impression: No acute intracranial process. New multiple small foci of nonspecific elevated T2 white matter signal. 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 Age-related volume loss. Electronically Signed by Philip Burton DO 05/09/2019 04:24 P
[2019-05-12 14:00] VITALS: BP 149/74
[2019-05-12] MEDS ORDERED: FLUBLOK(EGG FREE)(QUAD)INFLUENZA VACC 0.5ML SYRINGE (90682)18YRS&OLDER IM ONE (17:00)
[2019-05-12] MEDS ORDERED: PREVNAR 13 VACCINE SYRINGE (CPT CODE:90670) IM ONE (17:00)
[2019-05-12 19:44] VITALS: BP 152/79
[2019-05-12 20:39] VITALS: BP 152/79
[2019-05-12] MEDS: DONEPEZIL 5 MG TAB PO SCH (20:39)
[2019-05-12] MEDS: METOPROLOL SUCC (TopROL XL) 50MG **XL** TAB PO SCH (20:39)
[2019-05-12] MEDS: ASPIRIN 81 MG CHEW TABLET PO SCH (20:39)
[2019-05-12] MEDS: ATORVASTATIN 10 MG TAB PO SCH (20:40)
[2019-05-12] MEDS: ACETAMINOPHEN TAB 650MG DOSE (2X325MG) PO PRN (20:40)
[2019-05-12] MEDS: SERTRALINE 100 MG TAB PO SCH (20:40)
[2019-05-13 05:58] VITALS: BP 144/75
[2019-05-13] MEDS: MULTIVITAMINS/MINERALS THERAP 1 TAB PO SCH (08:16)
[2019-05-13] MEDS: MOM 30ML SUSPENSION UDC PO PRN (08:16)
[2019-05-13] MEDS: DOCUSATE SODIUM 100 MG CAP PO SCH (08:16)
[2019-05-13] MEDS: ENOXAPARIN 30 MG/0.3 ML SYR (J1650) SC SCH (08:17)
--- NOTE | 2019-05-13 10:43 | DS.PDOC ---
Discharge Summary General Date of Admission May 08, 2019 at 15:51 Date of Discharge 05/13/19 Discharge Summary CC: Fall Final Diagnosis:Mechanical fall, progressive dementia, wrist swelling HPI and hospital course. This is an 83-year-old female who lives alone and had a fall while she was going to the bank and was brought into the hospital confused. MRI has no acute abnormality. He was also complaining of swelling and for that reasons. CT scan of the head was done which she had and did not show any acute fractures. The patient was evaluated for any metabolic causes, which came out to be negative. No infective source was recognized. This is a chronic dementia which is progressive and for that reason had a family meeting and the son wants to take her home and is able to provide 24-hour care. She has taken responsibility for that. The patient will also be seen by social media marketing specialist for possible home care and the patient will be discharged home with a follow-up with PCP. PHYSICAL EXAMINATION: GENERAL: The patient is pleasant, Able to state her name. She is alert, oriented times place and person HEENT No scleral icterus. No jaundice. No jugular venous distention (JVD). No use of respiratory accessory muscles. Face is symmetric. She does have some word finding difficulties, but speech is fluent. NECK: Supple. Full range of motion. No pronator drift. LUNGS: Clear to auscultation. No wheezing, rales or rhonchi. HEART: S1, S2. Sinus. ABDOMEN: Soft, nontender, nondistended. EXTREMITIES: No edema. Medications. As per discharge reconciliation medication list Activity as tolerated Diet. 2 g sodium diet Follow-up appointments. PCP in 1 week, nephrology in 1 week Condition on discharge. Patient is medically optimized for discharge Discharge disposition: Home with home health Total time spent on this discharge including coordination of care, review of chart documentation and actual patient contact is around 35 minutes Vital Signs/I&Os Vital Signs Date Time Temp Pulse Resp B/P (MAP) Pulse Ox O2 Delivery O2 Flow Rate FiO2 05/13/19 05:58 98.4 71 16 144/75 (98) 94 Room Air I&O- Last 24 Hours up to 6 AM 05/13/19 06:00 Intake Total 605 ml Balance 605 ml Discharge Medications Scheduled Aspirin (Aspirin) 81 Mg Tab.chew, 81 MG PO QPM, (Reported) Atorvastatin Calcium (Atorvastatin Calcium) 10 Mg Tablet, 10 MG PO QPM, (Reported) Donepezil HCl (Donepezil HCl) 10 Mg Tablet, 10 MG PO QPM, (Reported) Ginkgo Biloba [place] Extract (Ginkgo) 60 Mg Tablet, 60 MG PO QPM, (Reported) Metoprolol Succinate (Metoprolol Succinate) 50 Mg Tab.er.24h, 50 MG PO QPM, (Reported) Multivitamin (Multivitamins) 1 Each Capsule, 1 CAP PO QPM, (Reported) Sertraline HCl (Sertraline HCl) 100 Mg Tablet, 100 MG PO QPM, (Reported) Allergies Coded Allergies: No Known Allergies (Unverified , 05/07/19) CHRISTINA RODRIGUEZ MD May 13, 2019 10:43
[2019-05-13 14:00] VITALS: BP 139/74
== END 2019-05-13 15:26 | disposition home health service (06) | DRG 884 ==
LOC: EDBD 17:53 → M ED 17:53 → M ED INP 17:54 → M PCU 23:30 → OBSVTOIN 05-08 15:51 → M MS5PR 05-08 16:45
PROVIDERS: ADMIT Internal Medicine; ATTEND Internal Medicine
DX: F03.90 Unspecified dementia, unspecified severity, without behavioral disturbance, psychotic disturbance, mood disturbance, and anxiety (principal); G93.40 Encephalopathy, unspecified; R41.82 Altered mental status, unspecified; E78.5 Hyperlipidemia, unspecified; I10 Essential (primary) hypertension; Z79.82 Long term (current) use of aspirin; Z79.899 Other long term (current) drug therapy; R26.89 Other abnormalities of gait and mobility; F32.9 Major depressive disorder, single episode, unspecified; S62.014A Nondisplaced fracture of distal pole of navicular [scaphoid] bone of right wrist, initial encounter for closed fracture; W18.09XA Striking against other object with subsequent fall, initial encounter; Y92.480 Sidewalk as the place of occurrence of the external cause; Y99.8 Other external cause status